=== PATIENT | male | born 1990 | race African-American/Black ===

== ENCOUNTER 2025-05-23 17:57 | Emergency (ER) | payer OTHER ==
[~2025-05-23] VITALS: Ht 177.8 cm; Wt 97.0 kg
[2025-05-23 18:06] VITALS: O2SAT 98
[2025-05-23] MEDS: TETANUS, DIPHTHERIA, PERTUSSIS VAC/PF 0.5ML (>10YR OLD) IM ONE (18:31)
[2025-05-23] MEDS ORDERED: BO1 TP (18:37)
[2025-05-23 18:50] VITALS: BP 118/70; PULSE 62; RESP 16; TEMP 36.8; O2SAT 100
== END 2025-05-23 18:52 | disposition home or self-care (01) ==
LOC: ER 17:57
DX: S41.112A Laceration without foreign body of left upper arm, initial encounter (principal); X58.XXXA Exposure to other specified factors, initial encounter; Y93.89 Activity, other specified; Y92.89 Other specified places as the place of occurrence of the external cause; Y99.8 Other external cause status
CPT/HCPCS: 90715; 90471; 99283; Z7610